=== PATIENT | male | born 1985 | race African-American/Black ===

== ENCOUNTER 2021-06-02 21:59 | Emergency (ER) | payer OTHER ==
[~2021-06-02] VITALS: Ht 185.4 cm; Wt 86.2 kg
--- NOTE | 2021-06-02 22:20 | NUR ---
TO ER BED 7. BIBSELF C/O SOB AFTER NON STOP COUGHING THIS EVENING. PT DENIES ANY CHEST PAIN. NOT IN RESPIRATORY DISTRESS. CONNECTED TO MONITOR. AWAITING MD COOK
--- NOTE | 2021-06-02 22:21 | NUR ---
DR. DELA CRUZ AT PT'S BEDSIDE
--- NOTE | 2021-06-02 22:55 | NUR ---
XRAY AT BEDSIDE
--- NOTE | 2021-06-02 23:08 | NUR ---
Patient discharged to home in stable condition. Written and verbal after care instructions given. Patient verbalizes understanding of instruction.
[2021-06-02 23:14] VITALS: BP 127/77
== END 2021-06-02 23:14 | disposition home or self-care (01) ==
LOC: ER 22:06
DX: R05.9 Cough, unspecified (principal); Z60.2 Problems related to living alone
CPT/HCPCS: 71045-TC